=== PATIENT | male | born 1995 | race Caucasian/White ===

== ENCOUNTER 2016-11-22 17:23 | Emergency (ER) | payer OTHER | END 2016-11-22 19:36 | disposition home or self-care (01) | LOC: FER 17:23 | DX: S39.012A Strain of muscle, fascia and tendon of lower back, initial encounter (principal); R03.0 Elevated blood-pressure reading, without diagnosis of hypertension; X50.9XXA Other and unspecified overexertion or strenuous movements or postures, initial encounter | CPT/HCPCS: J1100; J1885 ==